=== PATIENT | male | born 1985 | race Caucasian/White ===

== ENCOUNTER 2017-06-03 16:35 | Emergency (ER) | payer BC ==
--- NOTE | 2017-06-03 18:50 | ED ---
Headache - HPI Summary HPI Summary: 31 male presents to ED with complaints of a headache as bandlike the past 2 weeks. Patient states it is worse when he is having sexual intercourse. States she has never had pain like this before and describes it as "worst headache of his life". Denies any vision changes, tinnitus, vomiting, trauma/ injury or neck stiffness. Denies fever chills and recent illness. No past medical history no medications. States the headache is in the back of his head and radiates to neck. Describes it to be sharp and shooting at times other times it is dull ache States he has taken Flexeril and Advil with some relief. Took 600mg ibuprofen around 2 PM today along with 1 Flexeril. Admits to some nausea today. Denies chest pain, breathing and abdominal pain. No dizziness or lightheadedness. No numbness or tingling. No weakness. Exertion makes his headache worse. Massage, Flexeril and, applying pressure to neck makes pain better. - History Of Current Complaint Chief Complaint: EDHeadache Stated Complaint: HEADACHES X 3 WKS Time Seen by Provider: 06/03/17 17:50 Hx Obtained From: Patient Onset/Duration: Sudden Onset, Started weeks ago, Still Present, Worse Since Initially Headache Was: "Worst Headache Ever" Currently Pain Is: Current Pain Scale(0-10)= - 10, Severe Timing: Constant Character: Sharp Location of Headache: Occipital Radiates to: neck Aggravating Factor: Exertion Allevating Factors: Rest, Other (Noted In Comments) - Massage and certain position Associated Signs And Symptoms: Nausea, Neck Pain PMH/Surg Hx/FS Hx/Imm Hx Endocrine/Hematology History: Denies: Hx Anticoagulant Therapy, Hx Diabetes Cardiovascular History: Denies: Hx Hypertension Respiratory History: Denies: Hx Asthma Musculoskeletal History: Denies: Hx Arthritis - that Psychiatric History: Denies: Hx Anxiety - Surgical History Surgery Procedure, Year, and Place: none - Immunization History Immunizations Up to Date: Yes Infectious Disease History: No Infectious Disease History: Denies: Traveled Outside the [place] in Last 30 Days - Family History Known Family History: Positive: None - Social History Alcohol Use: Occasionally Substance Use Type: Reports: None Smoking Status (MU): Never Smoked Tobacco Review of Systems Constitutional: Negative Eyes: Negative ENT: Negative Cardiovascular: Negative Respiratory: Negative Gastrointestinal: Negative Musculoskeletal: Negative Skin: Negative Positive: Headache All Other Systems Reviewed And Are Negative: Yes Physical Exam Triage Information Reviewed: Yes Vital Signs On Initial Exam: Initial Vitals Temp Pulse Resp BP Pulse Ox 98.4 F 91 20 152/91 99 06/03/17 16:38 06/03/17 16:38 06/03/17 16:38 06/03/17 16:38 06/03/17 16:38 Vital Signs Reviewed: Yes Appearance: Positive: Well-Appearing, No Pain Distress, Well-Nourished Skin: Positive: Warm, Skin Color Reflects Adequate Perfusion, Dry. Negative: Cold, Numb, Cyanosis @, Pale, Erythema @ Head/Face: Positive: Normal Head/Face Inspection. Negative: Temporal Artery Tenderness, TMJ Tenderness, Scalp Eyes: Positive: Normal, EOMI, ERNA, Conjunctiva Clear ENT: Positive: Normal ENT inspection, Hearing grossly normal, Pharynx normal, TMs normal, Uvula midline. Negative: Tonsillar swelling, Tonsillar exudate Neck: Positive: Supple, Nontender, No Lymphadenopathy Respiratory/Lung Sounds: Positive: Clear to Auscultation, Breath Sounds Present. Negative: Rales, Rhonchi, Wheezes Cardiovascular: Positive: Normal, RRR, Pulses are Symmetrical in both Upper and Lower Extremities. Negative: Murmur, Rub Abdomen Description: Positive: Nontender, Soft Bowel Sounds: Positive: Present Musculoskeletal: Positive: Normal, Strength/ROM Intact. Negative: Limited @, Interruption @, Abnormal @, Pain @, Edema Left, Edema Right Neurological: Positive: Normal - Memory and concentration intact, normal neurologic exam, Sensory/Motor Intact, Alert, Oriented to Person Place, Time, CN Intact II-III, Reflexes Intact, NV Bundle Intact Distally, Normal Gait - Laurie Coma Scale Best Eye Response: 4 - Spontaneous Best Motor Response: 6 - Obeys Commands Best Verbal Response: 5 - Oriented Coma Scale Total: 15 Diagnostics - Vital Signs Vital Signs Temp Pulse Resp BP Pulse Ox 06/03/17 16:38 98.4 F 91 20 152/91 99 - Laboratory Result Diagrams: 06/03/17 19:30 06/03/17 19:30 Lab Statement: Any lab studies that have been ordered have been reviewed, and results considered in the medical decision making process. Re-Evaluation - Re-Evaluation First Eval Re-Evaluation Time: 20:30 Change: Improved - Patient's headache was much improved, 4/10. Feeling much better. Updated on imaging and lab results. All questions are answered. Agrees with plan. Headache Course/Dx - Course Course Of Treatment: Labs and CT obtained. Given Toradol, fluids, Benadryl and Zofran for pain and nausea. Patient had significant relief. Labs and CT negative and unremarkable. Appears to be suffering from a tension headache. Possible MSK strain. will continue same medication regimen at home along with Flexeril. Along with heating pad and massage. Rest and avoid strenuous exercise/exertion. Follow-up with primary care provider and neurologist if symptoms do not improve/worsen. Aware worsening signs and symptoms to watch out for. Increase fluid intake. No other concerns at this time. Physical exam and vital signs were normal otherwise. Did educate that blood pressure was slightly elevated and to have rechecked followed up with primary care provider as this could be exacerbating his headache. - Diagnoses Differential Diagnosis/HQI/PQRI: Migraine, Tension Headache - X-ray no, Viral Syndrome Provider Diagnoses: Tension headache, Muscle strain Discharge - Sign-Out/Discharge Documenting (check all that apply): Discharge - Discharge Plan Condition: Improved Disposition: HOME Prescriptions: Cyclobenzaprine TAB* [Flexeril 10 MG TAB*] 10 mg PO TID PRN #30 tab PRN Reason: Spasms Ketorolac TAB * [Toradol TAB *] 10 mg PO Q6H PRN #8 tab PRN Reason: Headache Ondansetron ODT TAB* [Zofran 4 MG Odt TAB*] 4 mg PO Q6H PRN #8 tab.odt PRN Reason: Nausea Patient Education Materials: Tension Headache (ED) Referrals: No Primary Care Phys,NOPCP [Primary Care Provider] - Rancho Crockett MD [Medical Doctor] - Additional Instructions: Take prescribed medication as directed. Toradol should be a continuation of today's IV dose therefore if you would like to take the Toradol please take as directed starting tomorrow. If you decide not to take Toradol INSTEAD take 600 mg of ibuprofen. Do not take ibuprofen and Toradol same time. Increase fluid intake, you may also take Benadryl to help with headache. Zofran as needed for nausea. Apply heating pad to back of head and neck. Rest and avoid strenuous exertion. Massages also recommended. Any new worsening symptoms please seek medical attention as we discussed ( increased headache, vomiting, fevers/chills, vision changes, altered mental status) Please call make an appointment with primary care provider for recheck in the next week. If symptoms worsen or do not improve please make an appointment with neurologist. - Billing Disposition and Condition Condition: IMPROVED Disposition: HOME
[2017-06-03] MEDS ORDERED: NS 0.9% 1000 ML* 1,000 ML IV ONE (19:05)
[2017-06-03] MEDS ORDERED: diPHENhydraMINE IV* 50 MG/ML 1 ml VIAL (BENADRYL) IM ONE (19:05)
[2017-06-03] MEDS ORDERED: Ketorolac INJ* 30 MG/ML 1 ML VIAL IV ONE (19:05)
[2017-06-03] MEDS ORDERED: Ondansetron INJ* 2 MG/ML VIAL IV ONE (19:05)
--- NOTE | 2017-06-03 19:46 | RAD ---
INDICATION: Worst headache of life. COMPARISON: There are no prior studies available for comparison. TECHNIQUE: Contiguous axial sections of the brain were obtained from the skull base to the vertex without contrast. FINDINGS: The ventricles, cisterns and sulci are within normal limits. No significant focal abnormality or mass effect is seen. There is no evidence for hemorrhage. No significant focal osseous abnormality is seen. The visualized portion of the paranasal sinuses and mastoid air cells appear clear. IMPRESSION: NO EVIDENCE FOR ACUTE INTRACRANIAL ABNORMALITY.
[2017-06-03 19:48] LABS: ABS Basophils 0.1 10^3/ul (0-0.2); ABS Eosinophils 0.3 10^3/ul (0-0.6); ABS Monocytes 0.7 10^3/ul (0-0.8); ABS Neutrophils 5.8 10^3/ul (1.5-7.7); ABS Nucleated RBC 0 10^3/ul; Eosinophil % 3.4 % (0-6); Hematocrit 46 % (42-52); Hemoglobin 15.7 g/dl (14.0-18.0); Lymphocyte % 22.8 % (25-47); Mean Corpuscular HGB Conc 35 g/dl (31-36); Mean Corpuscular Hemoglobin 31 pg (27-31); Mean Corpuscular Volume 91 fL (80-94); Mean Platelet Volume 7.6 um3 (7.4-10.4); Nucleated Red Blood Cells % 0; Platelet Count 258 10^3/ul (150-450); Red Blood Count 5.02 10^6/ul (4.0-5.4); Red Cell Distribution Width 14 % (10.5-15); White Blood Count 8.9 10^3/ul (3.5-10.8)
[2017-06-03] MEDS ORDERED: diPHENhydraMINE IV* 50 MG/ML 1 ml VIAL (BENADRYL) SLOW PUSH ONE (19:53)
[2017-06-03 20:04] LABS: EGFR Non-African American 63.8 (>60)
[2017-06-03 21:05] VITALS: BP 132/82
== END 2017-06-03 21:04 | disposition home or self-care (01) ==
LOC: ED 16:35
DX: G44.209 Tension-type headache, unspecified, not intractable (principal); S16.1XXA Strain of muscle, fascia and tendon at neck level, initial encounter; X58.XXXA Exposure to other specified factors, initial encounter; Y93.9 Activity, unspecified; Y92.9 Unspecified place or not applicable; R11.0 Nausea
CPT/HCPCS: 36415; 70450; 80053; 83605; 85025; 85652; 96374; 96375; 99282; J1200; J1885; J2405